=== PATIENT | female | born 1975 | race Caucasian/White ===

== ENCOUNTER 2017-09-05 10:30 | Outpatient (CLI) | payer MEDICAID | END 2017-09-05 10:31 | disposition home or self-care (01) | LOC: BICMAMMO 10:30 | PROVIDERS: ATTEND Physician Assistant | DX: N64.4 Mastodynia (principal); Z85.43 Personal history of malignant neoplasm of ovary | CPT/HCPCS: 77066; G0279 ==

== ENCOUNTER 2017-12-13 15:52 | Outpatient (CLI) | payer OTHER | END 2017-12-13 15:53 | disposition home or self-care (01) | LOC: BICULT 15:52 | PROVIDERS: ATTEND Surgery | DX: Z08 Encounter for follow-up examination after completed treatment for malignant neoplasm (principal); Z80.3 Family history of malignant neoplasm of breast ==

== ENCOUNTER 2018-12-27 10:26 | Emergency (ER) | payer SELFPAY ==
[2018-12-27] MEDS ORDERED: Ketorolac Tromethamine 30 MG/ML VIAL ONE (11:12)
--- NOTE | 2018-12-27 11:46 | RAD ---
LUMBAR SPINE 3 VIEWS: HISTORY: Back pain. FINDINGS: Lumbar vertebrae maintain height. There is loss of disk space at L4-5 and mild disk narrowing at L5- S1. 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 Slight posterolisthesis at L4-5 measured at 2-3 mm. The other disk spaces are maintained. IMPRESSION: 1. Grade I anterolisthesis at L5-S1 with posterior spondylolysis. 2. Degenerative disk changes at L4-5 with loss of disk space and slight posterolisthesis. POS: LEE
[2018-12-27 12:08] LABS: Pregnancy Test - Urine (BHCG) Negative (Negative); Pregu Control Background? CLEAR/WHITE (CLR/WHITE); Pregu Control Bar Appear? YES (CONTROL BAR); Specific Gravity 1.017 (1.002-1.036)
[2018-12-27 12:12] LABS: Bacteria/HPF None Seen HPF (None Seen); Bilirubin Negative (Negative); Blood, Urine Negative (Negative); Clarity Clear (Clear); Glucose, Urine (Dipstick) Normal (Negative); Leukocyte 25 Leu/uL (Negative); Nitrite Negative (Negative); Protein, Urine (Dipstick) Negative (Neg-Trace); RBC/HPF 0-3 HPF (0-3); Squamous Epithelial 0-3 HPF (0-3); Urobilinogen Normal mg/dL (Less than 2)
[2018-12-27 12:14] LABS: Amphetamine Not Detected (NotDetected); Barbiturates Screen Not Detected (NotDetected); Benzodiazepine Screen Not Detected (NotDetected); Cocaine Metabolite Screen Not Detected (NotDetected); Medtox Control Line Valid? VALID (VALID); Medtox Reader # READER 4; Methadone Not Detected (NotDetected); Methamphetamine Not Detected (NotDetected); Opiate Screen Not Detected (NotDetected); Oxycodone Screen Not Detected (NotDetected); Phencyclidine (PCP) Not Detected (NotDetected); THC/Cannabinoid Screen Detected (NotDetected); Tricyclic Screen Detected (NotDetected)
== END 2018-12-27 12:34 | disposition home or self-care (01) ==
LOC: ERS 10:26
DX: N39.0 Urinary tract infection, site not specified (principal); M54.5 Low back pain; F41.9 Anxiety disorder, unspecified; F32.9 Major depressive disorder, single episode, unspecified; Z79.899 Other long term (current) drug therapy
CPT/HCPCS: 72100; 80306; 81003; 81015; 81025; 96374; J1885